=== PATIENT | female | born 1985 | race African-American/Black ===

== ENCOUNTER 2017-11-05 08:19 | Emergency (ER) | payer SELFPAY ==
[~2017-11-05] VITALS: Ht 162.6 cm; Wt 92.0 kg
[~2017-11-05 08:19] MED LIST: AMOXICILLIN500 MG OR; AMOXICILLIN500 MG PO; ATUSS DS OR; BLEPH-1010 % OD; DEP0PROVERA IM; NAPROSYN500 MG OR; NAPROSYN500 MG PO; NO HOME MEDS; PHENTERMINE30 MG OR; PRENATAL VIT OR; ZPAK OR
[2017-11-05 08:46] VITALS: BP 129/87
[2017-11-05] MEDS ORDERED: ANUCORT-HC25 MG RE (08:52)
== END 2017-11-05 09:19 | disposition home or self-care (01) | DRG 395 ==
LOC: ED 08:19
DX: K64.4 Residual hemorrhoidal skin tags (principal); L91.0 Hypertrophic scar; S20.359A Superficial foreign body of unspecified front wall of thorax, initial encounter

== ENCOUNTER 2019-04-27 03:43 | Emergency (ER) | payer BC ==
[~2019-04-27] VITALS: Ht 162.6 cm; Wt 110.0 kg
[~2019-04-27 03:43] MED LIST changes: +ANUCORT-HC25 MG RE
[2019-04-27] MEDS ORDERED: TRAMADOL HCL50 MG PO (04:09)
[2019-04-27] MEDS ORDERED: MOTRIN800 MG PO (04:09)
[2019-04-27] MEDS ORDERED: AMOXICILLIN500 MG PO (04:09)
[2019-04-27 04:16] VITALS: BP 126/73
== END 2019-04-27 04:23 | disposition home or self-care (01) | DRG 159 ==
LOC: ED 03:43
DX: K04.7 Periapical abscess without sinus (principal); K02.9 Dental caries, unspecified

== ENCOUNTER 2019-05-20 12:21 | Emergency (ER) | payer BC ==
[~2019-05-20] VITALS: Ht 162.6 cm; Wt 100.0 kg
[~2019-05-20 12:21] MED LIST changes: +MOTRIN800 MG PO; +TRAMADOL HCL50 MG PO
[2019-05-20 13:08] LABS: URINE BILIRUBIN - DIPSTICK NEGATIVE (NEGATIVE); URINE BLOOD DIPSTICK TRACE-INTACT (NEGATIVE); URINE COLOR YELLOW; URINE GLUCOSE - DIPSTICK NEGATIVE (NEGATIVE); URINE KETONE NEGATIVE (NEGATIVE); URINE LEUK ESTERASE NEGATIVE (NEGATIVE); URINE NITRITE - DIPSTICK NEGATIVE (Negative); URINE PH 5.5 (4.5-8.0); URINE PROTEIN - DIPSTICK TRACE mg/dL (NEG-TRACE); URINE SPECIFIC GRAVITY >=1.030
[2019-05-20] MEDS ORDERED: CLARITIN10 M1 PO (13:44)
[2019-05-20] MEDS ORDERED: TAM75CAP PO (13:44)
[2019-05-20 13:48] VITALS: BP 123/71
== END 2019-05-20 13:59 | disposition home or self-care (01) | DRG 153 ==
LOC: ED 12:21
PROVIDERS: Emergency Medicine
DX: J11.1 Influenza due to unidentified influenza virus with other respiratory manifestations (principal); F17.210 Nicotine dependence, cigarettes, uncomplicated

== ENCOUNTER 2020-03-14 14:43 | Emergency (ER) | payer BC ==
[~2020-03-14] VITALS: Ht 162.6 cm; Wt 99.1 kg
[~2020-03-14 14:43] MED LIST changes: +CLARITIN10 M1 PO; +TAM75CAP PO
[2020-03-14] MEDS ORDERED: FLOXIN OTIC0.3 % AU (15:16)
[2020-03-14 15:25] VITALS: BP 126/81
== END 2020-03-14 15:25 | disposition home or self-care (01) | DRG 156 ==
LOC: ED 14:43
DX: H60.93 Unspecified otitis externa, bilateral (principal); F17.210 Nicotine dependence, cigarettes, uncomplicated

== ENCOUNTER 2020-06-24 13:16 | Emergency (ER) | payer BC ==
[~2020-06-24] VITALS: Ht 162.6 cm; Wt 100.0 kg
[~2020-06-24 13:16] MED LIST changes: +FLOXIN OTIC0.3 % AU
[2020-06-24 14:04] LABS: HEMATOCRIT 34.2 % (37.0-47.0); HEMOGLOBIN 10.6 g/dl (12.0-16.0); IMMATURE GRANULOCYTES 0.3 % (0.0-5.0); MEAN CELL VOLUME 80.1 fL CALC (80.0-100.0); MEAN CORPUSCULAR HGB 24.8 pG CALC (26.0-32.0); NEUT# 7.95 thou/uL (2.00-7.15); RED BLOOD COUNT 4.27 mill/uL (4.20-5.60); RED CELL DISTRI WIDTH 16.1 % (11.5-15.5)
[2020-06-24 14:10] LABS: ALBUMIN 4.2 g/dL (3.2-5.0); ALKALINE PHOSPHATASE 55 u/l (38-126); ANION GAP 9 (6-22 (CALC)); BILIRUBIN, TOTAL 0.6 mg/dL (0.0-1.4); BUN 6 mg/dL (7-17); BUN/CREATININE RATIO 8 (12-20 (CALC)); CARBON DIOXIDE 28 mmol/l (22-30); CHLORIDE 106 mmol/l (95-108); CREATININE 0.7 mg/dL (0.5-1.0); GFR > 60 ML/MIN (>=60 (CALC)); GFR FOR AFR.AMER. > 60 ML/MIN (>=60 (CALC)); POTASSIUM 3.9 mmol/l (3.5-5.1); SGOT/AST 20 u/l (14-36); SODIUM 139 mmol/l (137-146); TOTAL PROTEIN 7.2 g/dL (6.3-8.2)
[2020-06-24 15:09] LABS: URINE BILIRUBIN - DIPSTICK NEGATIVE (NEGATIVE); URINE BLOOD DIPSTICK TRACE-INTACT (NEGATIVE); URINE CLARITY CLEAR; URINE COLOR YELLOW; URINE GLUCOSE - DIPSTICK NEGATIVE (NEGATIVE); URINE KETONE NEGATIVE (NEGATIVE); URINE LEUK ESTERASE NEGATIVE (Negative); URINE NITRITE - DIPSTICK NEGATIVE (Negative); URINE PROTEIN - DIPSTICK NEGATIVE (NEG-TRACE); URINE UROBILINOGEN - DIPSTICK 0.2 E.U./dL (0.2)
[2020-06-24] MEDS ORDERED: PREDNISONE20 MG PO (15:28)
[2020-06-24] MEDS ORDERED: TESSALON PER100 MG PO (15:28)
[2020-06-24 15:46] VITALS: BP 124/79
== END 2020-06-24 15:49 | disposition home or self-care (01) | DRG 203 ==
LOC: ED 13:16
DX: J20.8 Acute bronchitis due to other specified organisms (principal); F17.200 Nicotine dependence, unspecified, uncomplicated; Z20.828 Contact with and (suspected) exposure to other viral communicable diseases

== ENCOUNTER 2020-08-18 10:14 | Emergency (ER) | payer BC ==
[~2020-08-18] VITALS: Ht 162.6 cm; Wt 101.0 kg
[~2020-08-18 10:14] MED LIST changes: +PREDNISONE20 MG PO; +TESSALON PER100 MG PO
[2020-08-18] MEDS ORDERED: CORTISPORIN OTI10 M2 AS (10:42)
[2020-08-18] MEDS ORDERED: MOTRIN800 MG PO (10:42)
[2020-08-18] MEDS ORDERED: AMOX/K CLAV875 M1 PO (10:42)
[2020-08-18 10:45] VITALS: BP 122/76
[2020-08-19] MEDS ORDERED: TRAMADOL HYDROC50 MG PO (04:41)
== END 2020-08-18 10:45 | disposition home or self-care (01) | DRG 153 ==
LOC: ED 10:14
DX: H66.91 Otitis media, unspecified, right ear (principal); F17.210 Nicotine dependence, cigarettes, uncomplicated

== ENCOUNTER 2020-08-19 04:22 | Emergency (ER) | payer BC ==
[~2020-08-19] VITALS: Ht 162.6 cm; Wt 102.0 kg
[~2020-08-19 04:22] MED LIST changes: +AMOX/K CLAV875 M1 PO; +CORTISPORIN OTI10 M2 AS
[2020-08-19 04:33] VITALS: BP 153/78
[2020-08-19] MEDS ORDERED: TRAMADOL HYDROC50 MG PO (04:41)
== END 2020-08-19 05:00 | disposition home or self-care (01) | DRG 156 ==
LOC: ED 04:22
DX: H60.93 Unspecified otitis externa, bilateral (principal); F17.210 Nicotine dependence, cigarettes, uncomplicated

== ENCOUNTER 2021-02-16 19:02 | Emergency (ER) | payer BC ==
[~2021-02-16] VITALS: Ht 162.6 cm; Wt 106.2 kg
[~2021-02-16 19:02] MED LIST changes: +TRAMADOL HYDROC50 MG PO
[2021-02-16 19:51] VITALS: BP 157/93
== END 2021-02-16 22:10 | disposition home or self-care (01) | DRG 866 ==
LOC: ED 19:02
DX: B34.9 Viral infection, unspecified (principal); F17.290 Nicotine dependence, other tobacco product, uncomplicated; Z20.822 Contact with and (suspected) exposure to COVID-19

== ENCOUNTER 2021-08-21 16:13 | Emergency (ER) | payer BC ==
[~2021-08-21] VITALS: Ht 160 cm; Wt 102.0 kg
[2021-08-21] MEDS ORDERED: HYDROCO/APAP1 TA9 PO (18:31)
[2021-08-21] MEDS ORDERED: AMOX/K CLAV875 M1 PO (18:31)
[2021-08-21 18:48] VITALS: BP 134/79
== END 2021-08-21 18:48 | disposition home or self-care (01) | DRG 159 ==
LOC: ED 16:13
DX: K03.81 Cracked tooth (principal); F17.200 Nicotine dependence, unspecified, uncomplicated

== ENCOUNTER 2023-07-13 20:53 | Emergency (ER) | payer BC ==
[~2023-07-13] VITALS: Ht 160 cm; Wt 97.0 kg
[~2023-07-13 20:53] MED LIST changes: +HYDROCO/APAP1 TA9 PO; +MEDDOSEPAK PO; +METHOCARBAMOL500 MG PO; +NAPROXEN500 MG PO
[2023-07-13] MEDS ORDERED: NAPROXEN375 MG PO (21:39)
[2023-07-13] MEDS ORDERED: AMOXICILLIN500 M2 PO (21:39)
[2023-07-13 22:30] VITALS: BP 131/83
== END 2023-07-13 22:30 | disposition home or self-care (01) | DRG 159 ==
LOC: ED 20:53
DX: K02.9 Dental caries, unspecified (principal); K04.7 Periapical abscess without sinus